=== PATIENT | female | born 1945 | race Caucasian/White ===

== ENCOUNTER 2018-04-11 07:13 | Day surgery (SDC) | payer MEDICARE ==
[~2018-04-11] VITALS: Ht 175.3 cm; Wt 97.1 kg
[~2018-04-11 07:13] MED LIST: AMLODIPINE BESYL5 MG PO; ASPIRIN EC81 MG PO; BISOPROLOL-HCT1 EAC1 PO; CLARITIN10 M2 PO; CLOPIDOGREL75 MG PO; FISH OIL 1,0001 EAC1 PO; LIPITOR20 MG PO; LISINOPRIL-HCT1 EACH PO; PEPCID AC20 MG PO; PIOGLITAZONE-M1 EAC1 PO; VITAMIN D-32000 UNIT PO; VITAMIN D1000 UNI1 PO; ZOCOR40 MG PO
--- NOTE | 2018-04-11 08:28 | NUR ---
04/11/18 0828 Sandy Fisher 0845-PATIENT ARRIVED TO PACU ON 2L NC O2 SAT 94% PATIENT AWAKE DROWSY DENIES PAIN OR NASUEA. ENCOURAGED TO PASS FLATUS. LAYING LEFT LATERAL. ABDOMEN SOFT AND ROUND
--- NOTE | 2018-04-12 08:39 | OR ---
[facility] [address], [place] [address] Signed DATE OF OPERATION: 04/11/2018 SURGEON: Ruben Barnes MD PREOPERATIVE DIAGNOSIS: Screening. POSTOPERATIVE DIAGNOSES: 1. Minimal sigmoid diverticulosis. 2. Minimal internal hemorrhoids. 3. Tortuous sigmoid colon. PROCEDURE PERFORMED: Colonoscopy without biopsy. ESTIMATED BLOOD LOSS: None. INDICATIONS: Aiyana is a 72-year-old diabetic female, who was asked to see me for a followup colonoscopy. She had a colonoscopy in 2007 while living in [place], [place]. At that time, everything was fine. No polyps. No diverticulosis. There is no family history of colon cancer or polyps. She has no lower GI complaints. I met with Aiyana in the office. I gave her a pamphlet on colonoscopy. She understands the nature of the test along with the risks including, but not limited to gas bloating, crampy abdominal pain, bleeding, perforation, requiring surgery, and missed diagnosis. She also understands the need for IV conscious sedation. She had expressed understanding and wish to proceed. PROCEDURE NOTE: Aiyana was taken into our endoscopy suite and placed in the left lateral decubitus position. She was given preoperative antibiotic for the knee replacement. She was also given 5 mg of Versed and 100 mcg of fentanyl to cover the case. A digital rectal exam was performed and this was unremarkable. After this, a digital rectal exam was performed and this was unremarkable. The adult colonoscope was introduced and advanced all around into the cecum under direct visualization of camera. It took me a few minutes to get through the sigmoid colon as it is a bit tortuous. The rest of the colon opened up nicely and her prep was quite good. The scope was then slowly withdrawn. We could see a few diverticula in the sigmoid colon. They were moderate in size, a relatively shallow and few in number. The rectum was unremarkable. Upon retroflexion Electronically Signed By: RUBEN BARNES MD 04/12/18 0839 PATIENT NAME: AIYANA RIOS OPERATIVE REPORT DATE OF : 49 REPORT #: [id number] PHYSICIAN: RUBEN BARNES MD PCP: RAQUEL BALES MD REPORT IS CONFIDENTIAL AND NOT TO BE RELEASED WITHOUT AUTHORIZATION [facility] [address], [place] [address] Signed of the scope, she has just minimal internal hemorrhoid columns. After this, the gas was suctioned out and the colonoscope removed. Aiyana tolerated the procedure quite well. RECOMMENDATIONS: Aiyana can follow up in 10 years for a repeat colonoscopy for health holds up. Ruben Barnes MD ALB/MODL /[id number] cc: DO Ruben Garibay MD Copies: RUFINO JASMINE ANDREW L MD ~ Electronically Signed By: RUBEN BARNES MD 04/12/18 0839 PATIENT NAME: DAMON RIOSEMELIA VELOZ OPERATIVE REPORT DATE OF : 49 REPORT #: [id number] PHYSICIAN: RUBEN BARNES MD PCP: RAQUEL BALES MD REPORT IS CONFIDENTIAL AND NOT TO BE RELEASED WITHOUT AUTHORIZATION
== END 2018-04-11 09:10 | disposition home or self-care (01) ==
LOC: DS 07:13 → OPS 07:13 → DS 08:15 → OPS 09:10
PROVIDERS: Colon & Rectal Surgery
PROC: 0DJD8ZZ Inspection of Lower Intestinal Tract, Via Natural or Artificial Opening Endoscopic (ICD-10-PCS; principal; 2018-04-11 08:15)
DX: Z12.11 Encounter for screening for malignant neoplasm of colon (principal); K57.30 Diverticulosis of large intestine without perforation or abscess without bleeding; K64.8 Other hemorrhoids; K21.9 Gastro-esophageal reflux disease without esophagitis; E11.22 Type 2 diabetes mellitus with diabetic chronic kidney disease; I12.9 Hypertensive chronic kidney disease with stage 1 through stage 4 chronic kidney disease, or unspecified chronic kidney disease; N18.2 Chronic kidney disease, stage 2 (mild); M19.90 Unspecified osteoarthritis, unspecified site; Z86.73 Personal history of transient ischemic attack (TIA), and cerebral infarction without residual deficits; Z98.890 Other specified postprocedural states; Z88.8 Allergy status to other drugs, medicaments and biological substances; Z79.82 Long term (current) use of aspirin; Z79.899 Other long term (current) drug therapy
CPT/HCPCS: G0500; J2250; J3010; J7120

== ENCOUNTER 2025-04-11 19:17 | Emergency (ER) | payer MEDICARE ==
[~2025-04-11] VITALS: Ht 175.3 cm; Wt 81.0 kg
[2025-04-11 19:47] LABS: BASOPHILS 0.4 % (0.1-1.2); EOSINOPHILS 0.9 % (0.7-5.8); LYMPHOCYTES 10.5 % (19.3-51.7); MCH 28.9 PG (25.6-32.2); MCHC 33.2 g/dL (32.2-35.5); MCV 87.1 fL (79.4-94.8); MONOCYTES 7.2 % (4.7-12.5); NEUTROPHILS 80.6 % (34.0-71.1); RBC 4.88 M/uL (3.93-5.22)
[2025-04-11 20:03] LABS: ALT (SGPT) 19.0 U/L (14-59); AST (SGOT) 18.0 U/L (15-37); GLOMERULAR FILTRATION RATE,EST 50.0 mL/min (>60); PROTEIN, TOTAL 7.5 g/dL (6.4-8.2); UREA NITROGEN 27.0 mg/dL (7-18)
[2025-04-11 20:27] LABS: BLOOD/HGB, URINE NEGATIVE (Negative); KETONE, URINE TRACE (Negative); LEUK ESTERASE, URINE TRACE (negative); NITRITE, URINE NEGATIVE (negative)
[2025-04-11 20:38] LABS: BACTERIA, URINE 1+ /hpf (negative); CASTS, URINE HYALINE 1+ \\lpf; CRYSTALS, URINE NONE SEEN (0-1+); EPITHELIAL CELLS, URINE SQUAMOUS 1+ /lpf (0-1+); REFLEX CULTURE, URINE Yes (No)
[2025-04-11] MEDS ORDERED: ONDANSETRON ODT8 MG PO (21:07)
[2025-04-11] MEDS ORDERED: AMOX TR-K CLV1 EAC1 PO (21:07)
[2025-04-11] MEDS ORDERED: HYDROCODON-ACE1 EA10 PO (21:07)
[2025-04-11] MEDS ORDERED: AMOXICILLIN/CLAVULANATE K 875 MG HOME.PACK PO ONE (21:15)
[2025-04-11] MEDS ORDERED: ONDANSETRON 4 MG HOME.PACK SL ONE (21:15)
[2025-04-11] MEDS ORDERED: HYDROCODONE BIT/ACETAMINOPHEN 5/325 MG 1 TAB HOME.PACK PO ONE (21:15)
[2025-04-11 21:29] VITALS: BP 131/76
== END 2025-04-11 21:30 | disposition home or self-care (01) ==
LOC: ED 19:17
PROVIDERS: Family Medicine
DX: K57.32 Diverticulitis of large intestine without perforation or abscess without bleeding (principal); Z88.8 Allergy status to other drugs, medicaments and biological substances; Z79.82 Long term (current) use of aspirin; Z79.899 Other long term (current) drug therapy
CPT/HCPCS: 36415; 74018; 74177; 80053; 81001; 83690; 85025; 87088; 99284-25; A9270; Q9967